=== PATIENT | female | born 1965 | race Caucasian/White ===

== ENCOUNTER 2017-09-29 10:11 | Emergency (ER) | payer SELFPAY ==
[2017-09-29 10:20] VITALS: BP 148/77
--- NOTE | 2017-09-29 10:52 | UC ---
Upper Extremity HPI - HPI Summary HPI Summary: 52 yo right handed female presents with right elbow and wrist pain for the last 3 months getting progressively worse. Also complains of some intermittent numbness in all of her fingers. She tells me that she works a lot with her hands and is constantly lifting/gripping/pulling. Has been taking ibuprofen for pain with moderate relief. Denies fever, chills, or specific injury. No hx of surgery to the UE - History of Current Complaint Chief Complaint: UCUpperExtremity Stated Complaint: ARM PAIN Time Seen by Provider: 09/29/17 10:43 Hx Obtained From: Patient Hx Last Menstrual Period: HYSTER Onset/Duration: Gradual Onset Severity Initially: Mild Severity Currently: Mild Pain Intensity: 3 Pain Scale Used: 0-10 Numeric Character: Dull, Aching - Allergies/Home Medications Allergies/Adverse Reactions: Allergies Allergy/AdvReac Type Severity Reaction Status Date / Time No Known Allergies Allergy Verified 09/29/17 10:20 Home Medications: Home Medications Ibuprofen [Advil] 2 tab PO Q8HR 09/29/17 [History Confirmed 09/29/17] PMH/Surg Hx/FS Hx/Imm Hx - Additional Past Medical History Additional PMH: None Previously Healthy: Yes - Surgical History Surgical History: Yes Surgery Procedure, Year, and Place: Hysterectomy, 2011, [facility]. cholescystectomy , 2010, [facility]. , 1987, [facility]. Tonsillectomy as a child - Family History Known Family History: Positive: Cardiac Disease, Hypertension, Diabetes - Social History Occupation: Employed Full-time Lives: With Family Alcohol Use: None Substance Use Type: None Smoking Status (MU): Light Every Day Tobacco Smoker Type: Cigarettes Amount Used/How Often: 3/4 PPD Length of Time of Smoking/Using Tobacco: 24 Years Have You Smoked in the Last Year: Yes - Immunization History Most Recent Tetanus Shot: 2011 Hx Tetanus, Diphtheria Vaccination: Yes Vaccination Up to Date: Yes Review of Systems Constitutional: Negative Skin: Negative Respiratory: Negative Cardiovascular: Negative Gastrointestinal: Negative Neurovascular: Negative Musculoskeletal: Other: - Right elbow and wrist pain Neurological: Negative Psychological: Negative All Other Systems Reviewed And Are Negative: Yes Physical Exam - Summary Physical Exam Summary: GENERAL: NAD. WDWN. No pain distress. SKIN: No rashes, sores, lesions, or open wounds. NECK: Supple. Nontender. No lymphadenopathy. CHEST: No accessory muscle use. Breathing comfortably and in no distress. CV: RRR. Without m/r/g. Pulses intact radial and ulnar. MSK: Right elbow: FROM. Strength 5/5. TTP lateral epicondyle. Positive chair lift test and middle finger extension with resistance. 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 No edema or obvious bony deformities. No snuffbox tenderness. Negative phalen's. NEURO: Alert. Sensations intact hand and all fingers. PSYCH: Age appropriate behavior. Triage Information Reviewed: Yes Vital Signs: Initial Vital Signs Temp 98 F 09/29/17 10:15 Pulse 79 09/29/17 10:15 Resp 19 09/29/17 10:15 BP 148/77 09/29/17 10:15 Pulse Ox 100 09/29/17 10:15 Upper Extremity Course/Dx - Course Course Of Treatment: Lateral epicondylitis right. Possible early CTS - will refer to Dr. crabtree for further eval. - Differential Dx/Diagnosis Provider Diagnoses: Right lateral epicondylitis. Right wrist pain Discharge - Sign-Out/Discharge Documenting (check all that apply): Discharge/Admit/Transfer - Discharge Plan Condition: Stable Disposition: HOME Prescriptions: Meloxicam 7.5 mg PO BID PRN #30 tab PRN Reason: Pain Patient Education Materials: Tennis Elbow (ED) Forms: *Work Release Referrals: Amalia Rubio MD [Primary Care Provider] - Snehal Crabtree MD [Medical Doctor] - As Soon As Possible Additional Instructions: If you develop a fever, shortness of breath, chest pain, new or worsening symptoms - please call your PCP or go to the ED. Your blood pressure was high at todays visit. Please see your primary provider within 4 weeks for recheck and re-evaluation. 1) Please call Dr. Crabtree at the number below to schedule an appointment regarding your arm and hand pain - Billing Disposition and Condition Condition: STABLE Disposition: Home
== END 2017-09-29 11:02 | disposition home or self-care (01) ==
LOC: UCEAST 10:11
DX: M77.11 Lateral epicondylitis, right elbow (principal); M25.531 Pain in right wrist; F17.210 Nicotine dependence, cigarettes, uncomplicated; Z82.49 Family history of ischemic heart disease and other diseases of the circulatory system; Z83.3 Family history of diabetes mellitus
CPT/HCPCS: 99212; G0463

== ENCOUNTER 2017-12-04 07:38 | Day surgery (SDC) | payer OTHER ==
--- NOTE | 2017-11-26 16:44 | HP ---
PREOPERATIVE HISTORY AND PHYSICAL: DATE OF SURGERY/ADMISSION: 12/04/17 DATE OF OFFICE VISIT/ENCOUNTER: 11/25/17 ATTENDING SURGEON: Snehal Soares MD* (dictated by KAREN Vilalsenor). PROCEDURE: Right elbow lateral release. CHIEF COMPLAINT: Right elbow pain. HISTORY OF PRESENT ILLNESS: This is a 52-year-old female who complains of pain in her right elbow for the past year, but it has gotten much worse over the past couple of months. She states that it is very bothersome at work. She had surgery on the elbow in the past for her lateral epicondylitis and had done very well with that. That was approximately 9 years ago. She did not have recurrence of symptoms until about an year ago. 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 Anything where she has to do any gripping or twisting of her forearm is very bothersome. She is not complaining of any associated numbness or tingling. She has failed conservative treatment recently of 2 cortisone injections, physical therapy, and Flector patch. She is interested in pursuing surgical intervention at this time for relief with symptoms. PAST MEDICAL HISTORY: Unremarkable. PAST SURGICAL HISTORY: 1. Right elbow lateral release approximately 9 years ago. 2. Cholecystectomy. 3. Hysterectomy. 4. Tonsillectomy. 5. . CURRENT MEDICATIONS: None. ALLERGIES: No known drug allergies. FAMILY MEDICAL HISTORY: Diabetes, heart disease, hypertension, cancer. 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 She is a current smoker. She smokes approximately 10 cigarettes per day and has done so for the past 20 years. She denies recreational drug use and does not drink alcohol. REVIEW OF SYSTEMS: General: Negative for fevers, chills, or night sweats. Unexplained weight loss/gain. No known anesthesia problems in the past. HEENT : Negative for headache, lightheadedness, syncopal episodes, or visual changes. Integumentary: Negative for abrasions, lesions, or open wounds. Cardiothoracic : Negative for hypertension, chest pain, palpitations, or edema. Respiratory: Negative for shortness of breath with exertion, chronic cough, wheezing. GI: Negative for nausea, vomiting, diarrhea, constipation, or GERD. : Negative for nocturia, urinary frequency, urgency, history of UTIs, or kidney problems. Musculoskeletal: Positive for current complaint. Negative for chronic or intermittent back pain. No history of fractures. Neurologic: Negative for paresthesias, numbness, history of seizures, stroke, or poor balance. Endocrine : Negative for diabetes and thyroid issues. Hematologic: Negative for easy bruising, anemia, bleeding disorders, or history of DVT. Infectious Disease: Negative for history of MRSA, hepatitis C, or HIV. PHYSICAL EXAMINATION GENERAL: Well-developed, well-nourished 52-year-old female in no acute distress. VITAL SIGNS: Height is 5 feet 6 inches, weight 169 pounds. Pulse rate 61, blood pressure 142/79. HEENT: Normocephalic, atraumatic. Pupils are equal, round, and reactive to light and accommodation. Extraocular movements are intact. NECK: Supple. No palpable lymph nodes. Throat is clear. PULMONARY: Lungs are clear to auscultation bilaterally. No wheezes, rales, or rhonchi. CARDIOVASCULAR: Regular rate and rhythm. S1 and S2. No murmurs, rubs, or gallops. No edema. ABDOMEN: Positive bowel sounds, soft, nontender. NEUROLOGIC: Alert and oriented x3. Cranial nerves II through XII are intact. Sensation is intact to light touch. MUSCULOSKELETAL: On exam of her right upper extremity, she lacks elbow extension about 10 degrees. She lacks elbow flexion of about 20 degrees. She has full supination and pronation, but it is very painful, especially with supination. She has exquisite tenderness to palpation at the lateral epicondyle and a well healed surgical incision there. She can make a fist, but has trouble squeezing tightly as it is quite painful. Wrist extension is also very painful. IMAGING STUDIES: X-rays AP, lateral and oblique of the right elbow appear normal. IMPRESSION: Right lateral epicondylitis. PLAN: The patient is scheduled to undergo right elbow lateral release with Dr. Soares on 12/04/17. She will return to the office 10 days postop for followup and suture removal. A prescription for ibuprofen 800 mg was e-scribed to the patient's pharmacy for postoperative pain management. AKREN VILLASENOR [id number]/[facility] #: [id number] [facility] HOSPITALJean-Claude
[~2017-12-04 07:38] MED LIST: Buffered Lidocaine 0.9% SYRIN* 5 ML/SYR SYRINGE INTRADERM ONE; Sodium Citrate/Citric Acid* 15 ML UDC ONE; Sodium Citrate/Citric Acid* 15 ML UDC PO ONE
[2017-12-04] MEDS ORDERED: ROPIVACAINE 5 MG/ML 30 ML BTL (0.5%) ONE (09:13)
[2017-12-04] MEDS ORDERED: Lidocaine 0.5%* 50 ML SDV ONE (09:29)
[2017-12-04] MEDS ORDERED: Midazolam* 1 MG/ML 2 ML VIAL (2 MG) ONE (09:29)
[2017-12-04] MEDS ORDERED: Ibuprofen TAB* 600 MG ONE (10:50)
[2017-12-04] MEDS ORDERED: Naloxone* 0.4 MG/ML 1 ML VIAL IV PRN (10:58)
[2017-12-04 11:17] VITALS: BP 131/70
--- NOTE | 2017-12-05 01:10 | OP ---
DATE OF OPERATION: 12/04/17 [facility] DATE OF : 61 SURGEON: Snehal Soares MD PEST CONTROL TECHNICIAN: KAREN Villasenor ANESTHESIA: IV regional. PRE-OP DIAGNOSIS: Recurrent lateral epicondylitis of the elbow. POST-OP DIAGNOSIS: Recurrent lateral epicondylitis of the elbow. OPERATIVE PROCEDURE: Right elbow lateral release. INDICATIONS FOR PROCEDURE: Shari is a 52-year-old woman who had right lateral epicondylitis. Several years ago, she had surgery and did very well until recently when she started to having significant recurrence in her pain. This pain has not responded to conservative treatment with physical therapy and cortisone injections. She did get temporary relief from cortisone injection. She presents now for redo elbow lateral release on the right side. ESTIMATED BLOOD LOSS: Zero. TOURNIQUET TIME: Approximately 25 minutes. DESCRIPTION OF PROCEDURE: The patient was brought to the operating room, was given a IV regional anesthetic with a tourniquet around her right upper arm. Skin of her right upper extremity was prepped and draped in the usual sterile fashion. The upper extremity was exsanguinated prior to instillation of the anesthetic. The previous scar was incised and extended slightly proximally, sharply dissected down to the extensor origin. A distally based U-shaped flap was created at the extensor origin and the underlying degenerative tissue was debrided with a rongeur. The tendon was then repaired in lengthened fashion with #1 Vicryl suture. The wound was irrigated and subcutaneous tissue closed with 2-0 Polysorb suture, and the skin with skin gianluca. The wound was dressed with Xeroform, 4x4, Webril, and an Sukhjinder wrap. The patient tolerated the procedure well and was brought to the recovery room in good condition. [id number]/[facility] #: [id number] MTDD
== END 2017-12-04 11:20 | disposition home or self-care (01) ==
LOC: OREAST 07:38
PROVIDERS: ATTEND Orthopaedic Surgery
DX: M77.11 Lateral epicondylitis, right elbow (principal); Z72.0 Tobacco use
CPT/HCPCS: A9270-GY; J2250; J2795

== ENCOUNTER 2018-08-20 09:28 | Day surgery (SDC) | payer OTHER ==
--- NOTE | 2018-08-16 14:18 | HP ---
PREOPERATIVE HISTORY AND PHYSICAL: DATE OF SURGERY/ADMISSION: 08/20/18 [facility] DATE OF OFFICE VISIT/ENCOUNTER: 08/02/18 ATTENDING SURGEON: Snehal Soares MD.* (DICTATED BY KAREN TRIANA) PROCEDURE: Right elbow radial nerve decompression. HISTORY OF PRESENT ILLNESS: This is a 53-year-old female who has a history of 2 surgeries of her right elbow. She has had lateral release performed in 2008 and again in November of [address] Soares. She has had since then tenderness in the area of the radial nerve in the elbow/forearm and radiating pain that travels down her arm. She had an EMG/nerve conduction study which showed findings of slowed nerve conduction velocity of the radial nerve in her proximal forearm. She had a cortisone injection in the proximal forearm in the area of tenderness where assumed radial nerve compression was occurring, and this did relieve her symptoms. Unfortunately, the symptoms returned. She is now interested in pursuing surgical intervention for this problem in the forearm with a right elbow radial nerve decompression. PAST MEDICAL HISTORY: She has history of a DVT approximately 30 years ago when she was . PAST SURGICAL HISTORY: 1. Right elbow lateral release x2 in 2008 and 2017. 2. Cholecystectomy. 3. Hysterectomy. 4. Tonsillectomy. 5. . CURRENT MEDICATIONS: 1. Flector patch apply for 12 hours p.r.n. at site of pain. 2. Ibuprofen 800 mg one tablet q.8 hours p.r.n. pain. ALLERGIES: No known drug allergies. FAMILY MEDICAL HISTORY: Diabetes, heart disease, hypertension, and cancer. 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 She is a current smoker, approximately 10 cigarettes per day. She smoked for about 21 years. She denies recreational drug use and does not drink alcohol. REVIEW OF SYSTEMS: Negative for general, cephalic, cardiovascular, respiratory , GI, , other musculoskeletal, integumentary, endocrine, neurologic, and hematologic symptoms. Infectious Disease: Negative for MRSA, hepatitis C or HIV. PHYSICAL EXAMINATION GENERAL: Well-developed, well-nourished, 53-year-old female, in no acute distress. VITAL SIGNS: Height 5 feet 6 inches, weight 132 pounds, pulse rate 76, and blood pressure 132/88. HEENT: Normocephalic and atraumatic. Pupils are equal, round, and reactive to light and accommodation. Extraocular movements are intact. NECK: Supple. No palpable lymph nodes. Throat is clear. PULMONARY: Lungs are clear to auscultation bilaterally. No wheezes, rales, or rhonchi. CARDIOVASCULAR: Regular rate and rhythm. S1 and S2. No murmurs, rubs, or gallops. No edema. ABDOMEN: Positive bowel sounds. Soft and nontender. NEUROLOGICAL: Alert and oriented x3. Cranial nerves II through XII are intact. Sensation is intact to light touch. MUSCULOSKELETAL: On exam of her right elbow, she has fairly good motion in both flexion and extension. She has some persistent pain in the area of the lateral epicondyle and just distal to that in the area of the radial nerve. She complains of tingling and numbness down the arm and pain with resisted wrist extension. Sensation is intact to light touch in the right upper extremity. DIAGNOSTIC STUDIES/LAB DATA: An MRI shows an irritation of the common extensor tendon around the lateral epicondyle and some tendinosis at the triceps. EMG/nerve conduction study shows the right radial motor nerve decreased motion velocity. IMPRESSION: Right radial nerve compression. PLAN/RECOMMENDATIONS: The patient is scheduled to undergo a right radial nerve decompression with Dr. Soares on 08/20/18. She will return to the office 10 days postop for followup and suture removal. A prescription for ibuprofen 800 mg was e- scribed to the patient's pharmacy for postoperative pain management. KAREN TRIANA [id number]/[facility] #: [id number] KENN
[~2018-08-20 09:28] MED LIST changes: -Buffered Lidocaine 0.9% SYRIN* 5 ML/SYR SYRINGE INTRADERM ONE; +Buffered Lidocaine 1% SYRIN* 1 ML/SYRINGE INTRADERM ONE; +Lactated Ringers 1000 ML Bag* 1,000 ML IV SCH; -Sodium Citrate/Citric Acid* 15 ML UDC ONE
[2018-08-20] MEDS ORDERED: ceFAZolin 2 GM PREMIX in ORs 2 GM/50 ML BAG IVPB ONE (09:34)
[2018-08-20] MEDS ORDERED: Famotidine IV* 10 MG/ML 2 ML (20 mg) ONE (09:50)
[2018-08-20] MEDS ORDERED: Bupivacaine 0.5% SDV PF* 30ML VIAL ONE (11:10)
[2018-08-20] MEDS ORDERED: Propofol* 10 MG/ML 20 ML BTL ONE (11:21)
[2018-08-20] MEDS ORDERED: fentaNYL* 50 MCG/ML 2 ML VIAL (100 MCG VIAL) ONE (11:21)
[2018-08-20] MEDS ORDERED: Lidocaine 2% PF * 5 ML VIAL ONE (11:21)
[2018-08-20] MEDS ORDERED: Dexamethasone IV* 4 MG/ML 1 ML (4 MG) ONE (11:47)
[2018-08-20] MEDS ORDERED: Naloxone* 0.4 MG/ML 1 ML VIAL IV PRN (11:54)
[2018-08-20] MEDS ORDERED: Ketorolac INJ* 30 MG/ML 1 ML VIAL IV PRN (11:54)
[2018-08-20] MEDS ORDERED: fentaNYL* 50 MCG/ML 2 ML VIAL (100 MCG VIAL) IV PRN (11:54)
[2018-08-20] MEDS ORDERED: Ondansetron INJ* 2 MG/ML VIAL IV PRN (11:54)
[2018-08-20] MEDS ORDERED: Ondansetron INJ* 2 MG/ML VIAL ONE (13:02)
[2018-08-20] MEDS ORDERED: Ketorolac INJ* 30 MG/ML 1 ML VIAL ONE (13:03)
[2018-08-20 13:29] VITALS: BP 125/76
--- NOTE | 2018-08-20 16:24 | OP ---
DATE OF OPERATION: 08/20/18 [facility] DATE OF : 61 SURGEON: Snehal Soares MD ASSISTANTS: KAREN Villasenor and KAREN Escudero ANESTHESIA: General. PRE-OP DIAGNOSIS: Right radial nerve decompression at the elbow. POST-OP DIAGNOSIS: Right radial nerve decompression at the elbow. OPERATIVE PROCEDURE: Right radial nerve decompression. ESTIMATED BLOOD LOSS: Zero. TOURNIQUET TIME: About 40 minutes. INDICATIONS FOR PROCEDURE: Shari is a 53-year-old female who has right proximal forearm pain. She has had two elbow lateral releases with initially very good improvement in her symptoms and more recently no improvement in her symptoms. She has been diagnosed with radial nerve compression in the forearm. She presents for radial nerve decompression. DESCRIPTION OF PROCEDURE: The patient was brought to the operating room, was given a general anesthetic and placed in the supine position on the operating room table with a tourniquet around her right upper arm. Skin of her right upper extremity was prepped and draped in the usual sterile fashion. The hand and forearm were exsanguinated and the tourniquet elevated to 250 mmHg. The previous incision was extended distally on the dorsal aspect of the forearm. We dissected through the subcutaneous tissue down to the edge of the brachioradialis muscle. The extensor muscle mass was retracted and then the radial nerve was located in the proximal portion of the wound. The lechar of Jan vessels were travelling parallel to the nerve so were not causing any compression on the nerve. There were some fascial bands around the radiocapitellar joint that were incised. There was significant compression from the proximal edge of the supinator muscle. The supinator muscle was released completely around the radial nerve which was very flattened through the muscle and the nerve was released all the way to the mid aspect of the forearm. This superficial sensory branch was also located and was in good condition. The wound was irrigated and the subcutaneous tissue closed with 3-0 Vicryl suture, the skin with skin gianluca. The wound was dressed with Xeroform, 4x4, Webril, and an Sukhjinder wrap. The patient tolerated the procedure well and was brought to the recovery room in good condition. [id number]/[facility] #: [id number] MTDD
== END 2018-08-20 13:43 | disposition home or self-care (01) ==
LOC: OREAST 09:28
PROVIDERS: ATTEND Orthopaedic Surgery
DX: G56.31 Lesion of radial nerve, right upper limb (principal); Z72.0 Tobacco use; Z86.718 Personal history of other venous thrombosis and embolism
CPT/HCPCS: J0690; J1100; J1885; J2405; J2704; J3010; J3490

== ENCOUNTER 2018-12-30 09:17 | Emergency (ER) | payer OTHER ==
--- OUTSIDE RECORDS SUMMARY | 2018-12-30 09:52 | XMS REPORT | Continuity of Care Document ---
:1965 External Reference #:[id number] Author Name QUE Villasenor (transmitted by agent of provider Oswald Carey) Address [address] [place] [address] Care Team Providers Name Role Phone Kami Castillo MD - Family Medicine Care Team Information Rehab Therapist [phone] Problems Description No Information Available Social History Type Date Description Comments Sex Unknown ETOH Use Denies alcohol use Tobacco Use Start: Unknown Heavy tobacco smoker (more than 10 cigarettes/day) Smoking Status Reviewed: 11/24/18 Heavy tobacco smoker (more than 10 cigarettes/day) Exercise Type/Frequency Exercises regularly Allergies, Adverse Reactions, Alerts Description No Known Drug Allergies Medications Active Medications SIG Qnty Indications Ordering Provider Date Gabapentin 1po day 1, 1 by 90caps G56.31 Snehal Soares, 09/30/2018 300mg mouth twice a M.D. Capsules day day 2, then 1 by mouth three times a day Ibuprofen up to 3 tablets Unknown 200mg Tablets twice daily as needed History Medications Ibuprofen 1 tablet q8 hours 30tabs Snehal Soares, 08/02/2018 - 800mg as needed for M.D. 09/29/2018 Tablets pain Medications Administered in Office Medication SIG Qnty Indications Ordering Provider Date Depomedrol 40MG Snehal Soares M.D. 06/17/2018 Injection Depomedrol 40MG Snehal Soares M.D. 04/15/2018 Injection Depomedrol 40MG Snehal Soares M.D. 10/19/2017 Injection Immunizations Description No Information Available Vital Signs Date Vital Result Comment 11/24/2018 8:40am Height 66 inches 5'6" Weight 170.00 lb BP Systolic 124 mmHg BP Diastolic 84 mmHg Respiratory Rate 15 /min Body Temperature 96.9 F Pain Level 1 BMI (Body Mass Index) 27.4 kg/m2 11/08/2018 9:01am Height 66 inches 5'6" Weight 170.00 lb BP Systolic 130 mmHg BP Diastolic 68 mmHg Respiratory Rate 18 /min Pain Level 1 BMI (Body Mass Index) 27.4 kg/m2 Results Description No Information Available Procedures Date Code Description Status 08/20/2018 01281 Neuroplasty, Major Peripheral Nerve Arm Or Leg Completed 08/20/2018 82277 Neuroplasty, Major Peripheral Nerve Arm Or Leg Completed 06/17/2018 90414 Injection Single Tendon Origin/Insertion Completed Medical Devices Description No Information Available Encounters Type Date Location Provider Dx Diagnosis Office Visit 07/08/2018 [facility] Norberto Mayo Lateral 9:15a [facility] epicondylitis, right elbow G56.31 Lesion of radial nerve, right upper limb Office Visit 06/17/2018 [facility]opedic Snehal Thornton Lateral 9:00a [facility] Reyna Soares epicondylitis, C.M.A. right elbow G56.31 Lesion of radial nerve, right upper limb Office Visit 06/15/2018 Orthopedic Hector Owen.11 Lateral 9:00a Services Of MD Donis epicondylitis, right C.M.A. elbow G56.31 Lesion of radial nerve, right upper limb Office Visit 06/03/2018 Orthopedic Snehal Thornton Lateral 10:45a [facility] Soares epicondylitis, C.M.A. right elbow G56.31 Lesion of radial nerve, right upper limb Assessments Date Code Description Provider 11/24/2018 G56.31 Lesion of radial nerve, right upper limb Rosetta Bitting, [facility] 11/24/2018 M77.11 Lateral epicondylitis, right elbow Rosetta Bitting, [facility] 11/24/2018 G56.31 Lesion of radial nerve, right upper limb Rosetta Bitting, [facility] 11/08/2018 G56.31 Lesion of radial nerve, right upper limb Rosetta Bitting, [facility] 09/30/2018 G56.31 Lesion of radial nerve, right upper limb Snehal Soares M.D. 08/30/2018 G56.31 Lesion of radial nerve, right upper limb Rosetta Bitting, [facility] 08/30/2018 Z48.02 Encounter for removal of sutures Rosetta Bitting, [facility] 08/30/2018 G56.31 Lesion of radial nerve, right upper limb Rosetta Bitting, [facility] 08/20/2018 G56.31 Lesion of radial nerve, right upper limb Rosetta Bitting, [facility] 08/20/2018 G56.31 Lesion of radial nerve, right upper limb Snehal Soares M.D. 08/02/2018 G56.31 Lesion of radial nerve, right upper limb Rosetta Bitting, [facility] 07/19/2018 M77.11 Lateral epicondylitis, right elbow Hector Dykes MD 07/19/2018 M77.11 Lateral epicondylitis, right elbow Snehal Soares M.D. 07/19/2018 G56.31 Lesion of radial nerve, right upper limb Snehal Soares M.D. 07/19/2018 G56.31 Lesion of radial nerve, right upper limb Hector Dykes MD 07/08/2018 M77.11 Lateral epicondylitis, right elbow Snehal Soares M.D. 07/08/2018 G56.31 Lesion of radial nerve, right upper limb Snehal Soares M.D. 06/17/2018 M77.11 Lateral epicondylitis, right elbow Snehal Soares M.D. 06/17/2018 G56.31 Lesion of radial nerve, right upper limb Snehal Soares M.D. 06/15/2018 M77.11 Lateral epicondylitis, right elbow Hector Dykes MD 06/15/2018 G56.31 Lesion of radial nerve, right upper limb Hector Dykes MD 06/03/2018 M77.11 Lateral epicondylitis, right elbow Snehal Soares M.D. 06/03/2018 G56.31 Lesion of radial nerve, right upper limb Snehal Soares M.D. Plan of Treatment Future Appointment(s):01/26/2019 9:00 am - Snehal Soares M.D. at [facility] [address]11/24/2018 - Rosetta Lloyd, [facility]CG56.31 Lesion of radial nerve, right upper limbNew Therapy:Physical TherapyFollow up:Follow up: 2 [id number] Lateral epicondylitis, right elbow Functional Status Description No Information Available Mental Status Description No Information Available Referrals Description No Information Available
--- OUTSIDE RECORDS SUMMARY | 2018-12-30 09:52 | XMS REPORT | Continuity of Care Document ---
:1965 External Reference #:[id number] Author Name Tonia Nuha Care Team Providers Name Role Phone Kami Castillo MD Primary Care Physician Unavailable Payers Date Identification Numbers Payment Provider Subscriber Expires: 2017 Policy Number: [id number] [employer] Shari Yousif PayID: [id number] [address] [address] [place] [address] Onset: 2017 Policy Number: [id number] Memic Shari Yousif Group Number: [id number] [address] Group Name: [place] [address] PayID: [id number] Family History Date Family Member(s) Observation Comments General Diabetes General Heart Disease General Hypertension General Cancer Social History Type Date Description Comments Sex Unknown 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 09/29/2018 Tablets for pain Medrol use as directed 1units Snehal Soares, 03/18/2018 - 4mg TBPK M.D. 06/15/2018 Ibuprofen 1 tablet q8 30tabs Snehal Soares, 11/25/2017 - 800mg hours as needed M.D. 04/14/2018 Tablets for pain Flector apply for 12 2packs M77.11 Snehal Soares, 11/09/2017 - 1.3% hours as needed M.D. 09/29/2018 Patches cut patch to size of painful area No Active Unknown 10/19/2017 - Medications 11/09/2017 No Active Unknown 11/21/2016 - Medications 11/21/2016 Naproxen 1 by mouth twice 14tabs M25.562 Kimberleemelony Chaviske, 11/21/2016 - 500mg a day x 2 weeks M.D. 10/18/2017 Tablets Medications Administered in Office Medication SIG Qnty Indications Ordering Provider Date Depomedrol 40MG Snehal Soares M.D. 06/17/2018 Injection Depomedrol 40MG Snehal Soares M.D. 04/15/2018 Injection Depomedrol 40MG Snehal Soares M.D. 10/19/2017 Injection Vital Signs Date Vital Result Comment 11/08/2018 9:01am Height 66 inches 5'6" Weight 170.00 lb BP Systolic 130 mmHg BP Diastolic 68 mmHg Respiratory Rate 18 /min Pain Level 1 BMI (Body Mass Index) 27.4 kg/m2 09/30/2018 11:20am Height 66 inches 5'6" Weight 170.00 lb Heart Rate 76 /min BP Systolic 126 mmHg BP Diastolic 78 mmHg Respiratory Rate 14 /min Pain Level 2 BMI (Body Mass Index) 27.4 kg/m2 08/30/2018 9:04am Height 66 inches 5'6" Weight 170.00 lb Heart Rate 74 /min Respiratory Rate 12 /min Body Temperature 97.1 F Pain Level 1 BMI (Body Mass Index) 27.4 kg/m2 08/02/2018 9:00am Height 66 inches 5'6" Weight 137.50 lb Heart Rate 76 /min BP Systolic Sitting 132 mmHg BP Diastolic Sitting 88 mmHg Respiratory Rate 18 /min Pain Level 2 BMI (Body Mass Index) 22.2 kg/m2 07/08/2018 9:16am Height 66 inches 5'6" BP Systolic 122 mmHg BP Diastolic 82 mmHg Respiratory Rate 15 /min Body Temperature 96.9 F Pain Level 2 06/17/2018 8:50am Height 66 inches 5'6" Heart Rate 84 /min BP Systolic 124 mmHg BP Diastolic 70 mmHg Respiratory Rate 18 /min Body Temperature 98.0 F Pain Level 5 06/15/2018 9:18am Height 66 inches 5'6" Weight 174.00 lb BP Systolic 118 mmHg BP Diastolic 74 mmHg Pain Level 2 BMI (Body Mass Index) 28.1 kg/m2 06/03/2018 10:06am Height 66 inches 5'6" Weight 170.00 lb BP Systolic 132 mmHg BP Diastolic 72 mmHg Respiratory Rate 15 /min Body Temperature 95.8 F Pain Level 2 BMI (Body Mass Index) 27.4 kg/m2 05/13/2018 8:46am Height 66 inches 5'6" Weight 170.00 lb BP Systolic 148 mmHg BP Diastolic 82 mmHg Respiratory Rate 15 /min Body Temperature 94.0 F Pain Level 2 BMI (Body Mass Index) 27.4 kg/m2 04/15/2018 8:35am Height 66 inches 5'6" Weight 170.00 lb BP Systolic 130 mmHg BP Diastolic 80 mmHg Respiratory Rate 15 /min Body Temperature 96.2 F Pain Level 2 BMI (Body Mass Index) 27.4 kg/m2 03/18/2018 10:55am Height 66 inches 5'6" Weight 170.00 lb Heart Rate 72 /min Respiratory Rate 15 /min Body Temperature 97.3 F Pain Level 2 BMI (Body Mass Index) 27.4 kg/m2 02/25/2018 9:00am Height 66 inches 5'6" Weight 170.00 lb Heart Rate 79 /min BP Systolic 160 mmHg BP Diastolic 88 mmHg Respiratory Rate 16 /min Body Temperature 97.8 F Pain Level 2 BMI (Body Mass Index) 27.4 kg/m2 01/21/2018 9:01am Height 66 inches 5'6" Heart Rate 68 /min BP Systolic Sitting 160 mmHg BP Diastolic Sitting 90 mmHg Respiratory Rate 20 /min Body Temperature 97.4 F Pain Level 4 12/16/2017 10:04am Height 66 inches 5'6" Weight 170.00 lb Heart Rate 74 /min BP Systolic 138 mmHg BP Diastolic 76 mmHg Respiratory Rate 12 /min Pain Level 2 BMI (Body Mass Index) 27.4 kg/m2 11/25/2017 9:12am Height 66 inches 5'6" Weight 169.00 lb Heart Rate 61 /min BP Systolic 142 mmHg BP Diastolic 79 mmHg Body Temperature 97.3 F BMI (Body Mass Index) 27.3 kg/m2 11/09/2017 10:13am Height 66 inches 5'6" Heart Rate 70 /min BP Systolic 120 mmHg BP Diastolic 78 mmHg Respiratory Rate 16 /min Body Temperature 98.3 F Pain Level 7 10/19/2017 8:40am Height 66 inches 5'6" Weight 170.00 lb Heart Rate 84 /min BP Systolic 138 mmHg BP Diastolic 80 mmHg Respiratory Rate 12 /min Body Temperature 97.8 F Pain Level 6 BMI (Body Mass Index) 27.4 kg/m2 10/01/2017 10:10am Height 66 inches 5'6" Weight 175.00 lb BP Systolic 140 mmHg BP Diastolic 88 mmHg Respiratory Rate 16 /min Body Temperature 97.5 F Pain Level 3 BMI (Body Mass Index) 28.2 kg/m2 11/21/2016 8:07am Height 66.25 inches 5'6.25" Weight 173.00 lb Heart Rate 72 /min BP Systolic 114 mmHg BP Diastolic 76 mmHg BMI (Body Mass Index) 27.7 kg/m2 Procedures Date Code Description Status 08/20/2018 50382 Neuroplasty, Major Peripheral Nerve Arm Or Leg Completed 08/20/2018 04037 Neuroplasty, Major Peripheral Nerve Arm Or Leg Completed 06/17/201803774 Injection Single Tendon Origin/Insertion Completed 04/15/2018 Injection Single Tendon Origin/Insertion Completed 12/04/2017 26213 Tenotomy Elbow Debridement W/Tendon Repair Or Completed Reattachement 12/04/2017 89697 Tenotomy Elbow Debridement W/Tendon Repair Or Completed Reattachement 12/04/2017 19879 Tenotomy Elbow Debridement W/Tendon Repair Or Completed Reattachement 10/19/201756210 Injection Single Tendon Origin/Insertion Completed 10/01/2017 24453 Injection Single Tendon Origin/Insertion Completed Encounters Type Date Location Provider Dx Diagnosis Office Visit 07/08/2018 Norberto Whyte [facility] 9:15a [facility] epicondylitis, right elbow G56.31 Lesion of radial nerve, right upper limb Office Visit 06/17/2018 Aldair Thornton Lateral 9:00a [facility]yl[facility] right elbow G56.31 Lesion of radial nerve, right upper limb Office Visit 06/15/2018 [facility] M77.11 Lateral 9:00a [facility] epicondylitis, right [facility] elbow G56.31 Lesion of radial nerve, right upper limb Office Visit 06/03/2018 [facility] M77.11 Lateral 10:45a [facility] epicondylitis, [facility] right elbow G56.31 Lesion of radial nerve, right upper limb Office Visit 05/13/2018 [facility] S[facility] M77.11 Lateral 9:00a [facility] epicondylitis, [facility] right elbow G56.31 Lesion of radial nerve, right upper limb G56.31 Lesion of radial nerve, right upper limb Office Visit 04/15/2018 [facility] M77.11 Lateral 9:00a [facility] epicondylitis, [facility] right elbow Office Visit 11/09/2017 [facility] M77.11 Lateral 10:00a [facility] epicondylitis, [facility] right elbow Office Visit 10/01/2017 [facility] M77.11 Lateral 10:30a [facility] epicondylitis, [facility] right elbow M77.11 Lateral epicondylitis, right elbow Office Visit 11/21/2016 8:00a [facility] Kimberlee Sahu, M25.562 Pain in left Of [facility] M.D. knee M25.561 Pain in right knee M17.12 Unilateral primary osteoarthritis, left knee M17.11 Unilateral primary osteoarthritis, right knee Plan of Treatment Future Appointment(s):11/24/2018 9:00 am - Snehal Soares M.D. at [facility]11/08/2018 - Rosetta Lloyd [id number] Lesion of radial nerve, right upper limbFollow up:Follow up: 2 weeks
[2018-12-30 10:06] VITALS: BP 141/72
--- NOTE | 2018-12-30 10:47 | UC ---
Throat Pain/Nasal Vance HPI - HPI Summary HPI Summary: sinus pain and pressure x 2 weeks pain is 6 out of 10 , nothing makes it better or worse nasal congestion, pnd, cough + fever, chills - History of Current Complaint Chief Complaint: UCGeneralIllness Stated Complaint: SINUS COMPLAINT Time Seen by Provider: 12/30/18 10:09 Hx Obtained From: Patient Hx Last Menstrual Period: HYSTER Onset/Duration: Gradual Onset, Lasting Weeks - 2, Still Present Severity: Moderate Pain Intensity: 3 Cough: Nonproductive Associated Signs & Symptoms: Positive: Sinus Discomfort, Nasal Discharge, Fever. Negative: Wheezing, Vomiting, Rash - Allergies/Home Medications Allergies/Adverse Reactions: Allergies Allergy/AdvReac Type Severity Reaction Status Date / Time No Known Allergies Allergy Verified 12/30/18 10:06 Home Medications: Home Medications Gabapentin CAP(*) [Neurontin 100 mg CAP(*)] 100 mg PO BID 12/30/18 [History Confirmed 12/30/18] PMH/Surg Hx/FS Hx/Imm Hx Previously Healthy: Yes - Surgical History Surgical History: Yes Surgery Procedure, Year, and Place: Hysterectomy, 2011, [facility]. cholecystectomy, 2010, [facility]. , 1987, [facility]. Tonsillectomy as a child. Right ELBOW lateral epicondyl release X2 - Family History Known Family History: Positive: Cardiac Disease, Hypertension, Diabetes - Social History Alcohol Use: None Substance Use Type: None Smoking Status (MU): Heavy Every Day Tobacco Smoker Type: Cigarettes Amount Used/How Often: 10 cigs per, 25 years approx Length of Time of Smoking/Using Tobacco: 24 Years Have You Smoked in the Last Year: Yes - Immunization History Most Recent Tetanus Shot: 2011 Hx Tetanus, Diphtheria Vaccination: Yes Vaccination Up to Date: Yes Review of Systems All Other Systems Reviewed And Are Negative: Yes Constitutional: Positive: Fever, Chills, Fatigue Skin: Positive: Negative Eyes: Positive: Negative ENT: Positive: Nasal Discharge, Sinus Congestion, Sinus Pain/Tenderness Respiratory: Positive: Cough Cardiovascular: Positive: Negative Is Patient Immunocompromised?: No Physical Exam Triage Information Reviewed: Yes Appearance: Well-Appearing, No Pain Distress, Well-Nourished Vital Signs: Initial Vital Signs Temp 98.3 F 12/30/18 10:01 Pulse 66 12/30/18 10:01 Resp 18 12/30/18 10:01 BP 141/72 09/19/19 10:01 Pulse Ox 100 12/30/18 10:01 Vital Signs Reviewed: Yes Eye Exam: Normal Eyes: Positive: Conjunctiva Clear ENT: Positive: Normal ENT inspection, Hearing grossly normal, Pharynx normal, Nasal congestion, Nasal drainage, TMs normal, Sinus tenderness. Negative: Pharyngeal erythema, TM bulging, TM dull, TM red, Tonsillar swelling, Tonsillar exudate Neck: Positive: Supple, Nontender, No Lymphadenopathy Respiratory: Positive: Chest non-tender, Lungs clear, Normal breath sounds Cardiovascular: Positive: RRR, No Murmur, Pulses Normal Throat Pain/Nasal Course/Dx - Differential Dx/Diagnosis Provider Diagnosis: Sinusitis, acute maxillary Discharge ED - Sign-Out/Discharge Documenting (check all that apply): Patient Departure All imaging exams completed and their final reports reviewed: No Studies - Discharge Plan Condition: Stable Disposition: HOME Prescriptions: Amoxicillin/Clavulanate TAB* [Augmentin TAB 875*] 875 mg PO BID #20 tab Patient Education Materials: Sinusitis (ED) Referrals: Lindy Larose NP [Primary Care Provider] - If Needed - Billing Disposition and Condition Condition: STABLE Disposition: Home
== END 2018-12-30 10:47 | disposition home or self-care (01) ==
LOC: UCCORT 09:17
DX: J01.00 Acute maxillary sinusitis, unspecified (principal); F17.210 Nicotine dependence, cigarettes, uncomplicated
CPT/HCPCS: 99212; G0463